=== PATIENT | female | born 1995 | race Caucasian/White ===

== ENCOUNTER 2018-12-29 15:20 | Outpatient (REF) | payer BC, SELFPAY | END 2018-12-29 15:40 | LOC: NCHCN 15:20 | PROVIDERS: PCP Registered Nurse; Visit Provider Registered Nurse | DX: R19.7 Diarrhea, unspecified (principal) | CPT/HCPCS: 87177 ==

== ENCOUNTER 2018-12-31 16:49 | Outpatient (REF) | payer BC, SELFPAY | END 2018-12-31 17:09 | LOC: NCHCN 16:49 | PROVIDERS: PCP Registered Nurse; Visit Provider Registered Nurse | DX: R19.7 Diarrhea, unspecified (principal) | CPT/HCPCS: 87177 ==

== ENCOUNTER 2019-03-26 08:50 | Outpatient (REF) | payer BC, SELFPAY | END 2019-03-26 09:10 | LOC: NCHCN 08:50 | PROVIDERS: PCP Registered Nurse; Visit Provider Registered Nurse | DX: R19.5 Other fecal abnormalities (principal) | CPT/HCPCS: 87177 ==

== ENCOUNTER 2019-08-11 20:55 | Outpatient (REF) | payer BC, SELFPAY ==
[2019-08-11 22:54] LABS: Ferritin 33 ng/mL (8-252); Folate 18.9 ng/mL (8.6-20.0); Vitamin B12 448 pg/mL (193-986)
[2019-08-12 05:51] LABS: Vitamin D 25 Total 37.1 ng/ml (30-100)
[2019-08-14 12:21] LABS: Thiamine (Vitamin B1), WB 116 nmol/L (70-180)
== END 2019-08-11 21:15 ==
LOC: NCHCN 20:55
PROVIDERS: PCP Registered Nurse; Visit Provider Nurse Practitioner Community Health
DX: R20.0 Anesthesia of skin (principal)
CPT/HCPCS: 82306; 81025; 82607; 82728; 82746; 84425

== ENCOUNTER 2024-11-02 16:27 | Outpatient (CLI) | payer BC, SELFPAY ==
[2024-11-02 17:18] LABS: HCG Quant, Pregnancy < 1 mIU/mL (1-3)
== END 2024-11-02 16:28 | disposition home or self-care (01) ==
LOC: LBO 16:27
PROVIDERS: PCP Registered Nurse; Visit Provider Nurse Practitioner Women's Health
DX: N92.6 Irregular menstruation, unspecified (principal)
CPT/HCPCS: 36415; 84702